=== PATIENT | female | born 1995 | race Caucasian/White ===

== ENCOUNTER 2017-06-01 20:43 | Day surgery (SDC) | payer OTHER ==
[~2017-06-01] VITALS: Ht 175.3 cm; Wt 70.3 kg
[2017-06-01 21:56] LABS: BASOPHILS % (AUTO) 0 % (0-10); EOSINOPHILS # (AUTO) 0.3 10^3/uL (0.0-0.3); EOSINOPHILS % (AUTO) 2 % (0-10); LYMPHOCYTES # (AUTO) 1.7 X 10^3 (1.0-4.0); LYMPHOCYTES % (AUTO) 13 % (12-44); MEAN CORPUSCULAR HEMOGLOBIN 30 PG (25-34); MEAN CORPUSCULAR HGB CONC 34 G/DL (32-36); MEAN CORPUSCULAR VOLUME 90 FL (80-99); MEAN PLATELET VOLUME 9.6 FL (7.4-10.4); MONOCYTES # (AUTO) 1.2 X 10^3 (0.0-1.0); MONOCYTES % (AUTO) 9 % (0-12); NEUTROPHILS # (AUTO) 10.3 X 10^3 (1.8-7.8); NEUTROPHILS % (AUTO) 76 % (42-75); PLATELET COUNT 289 10^3/uL (130-400); RED BLOOD COUNT 4.53 10^6/uL (4.35-5.85); RED CELL DISTRIBUTION WIDTH 13.8 % (10.0-14.5); WHITE BLOOD COUNT 13.6 10^3/uL (4.3-11.0)
[2017-06-01 21:57] LABS: BILIRUBIN,URINE NEGATIVE (NEGATIVE); KETONES,URINE NEGATIVE (NEGATIVE); LEUKOCYTE ESTERASE ,URINE NEGATIVE (NEGATIVE); NITRITE,URINE NEGATIVE (NEGATIVE); PH,URINE 7 (5-9); PROTEIN,URINE NEGATIVE (NEGATIVE); UROBILINOGEN,URINE NORMAL (NORMAL)
[2017-06-01] MEDS ORDERED: fentaNYL INJECTION 100 MCG/2 ML AMP IVP ONE ×2 (22:00→23:15)
[2017-06-01] MEDS ORDERED: KETOROLAC 30 MG/ML VIAL IVP ONE (22:00)
[2017-06-01] MEDS ORDERED: ONDANSETRON 4 MG/2 ML (SDV) Z0FRAN IVP ONE (22:00)
--- NOTE | 2017-06-01 22:13 | ED Abdominal Pain ---
General Chief Complaint: Abdominal/GI Problems Stated Complaint: STOMACH PAIN Source of Information: Patient Exam Limitations: No Limitations History of Present Illness Time Seen By Provider: 22:13 Initial Comments To ER with epigastric abdominal pain. This began about 4-5 hours ago. Her last food was at 2 p.m. She's never had this pain before. It's associated with nausea but no vomiting. Chills but no fever. No bowel changes. No dysuria. No possibility of . Timing/Duration: 4-6 Hours Severity/Quality: Moderate Location: Epigastric Radiation: No Radiation Activities at Onset: None Allergies and Home Medications Allergies Coded Allergies: No Known Drug Allergies (Unverified , 06/01/17) Review of Systems Constitutional: see HPI EENTM: No Symptoms Reported Respiratory: No Symptoms Reported Cardiovascular: No Symptoms Reported Gastrointestinal: See HPI, Abdominal Pain Genitourinary: No Symptoms Reported Musculoskeletal: no symptoms reported Skin: no symptoms reported Psychiatric/Neurological: No Symptoms Reported Past Bywxdey-Eifyuj-Gppubx Hx Patient Social History Recent Foreign Travel: No Contact w/Someone Who Travel: No Physical Exam Vital Signs Capillary Refill : General Appearance: WD/WN, no apparent distress HEENT: PERRL/EOMI, normal ENT inspection Neck: non-tender, full range of motion Respiratory: no respiratory distress, no accessory muscle use Cardiovascular: regular rate, rhythm, no murmur Gastrointestinal: normal bowel sounds, soft, tenderness (epigastric) Extremities: normal range of motion, non-tender Neurologic/Psychiatric: alert, normal mood/affect, oriented x 3 Skin: normal color, warm/dry Progress/Results/Core Measures Results/Orders Lab Results Laboratory Tests Test 06/01/17 21:49 06/01/17 21:50 Range/Units White Blood Count 13.6 H 4.3-11.0 10^3/uL Red Blood Count 4.53 4.35-5.85 10^6/uL Hemoglobin 13.7 11.5-16.0 G/DL Hematocrit 41 35-52 % Mean Corpuscular Volume 90 80-99 FL Mean Corpuscular Hemoglobin 30 25-34 PG Mean Corpuscular Hemoglobin Concent 34 32-36 G/DL Red Cell Distribution Width 13.8 10.0-14.5 % Platelet Count 289 130-400 10^3/uL Mean Platelet Volume 9.6 7.4-10.4 FL Neutrophils (%) (Auto) 76 H 42-75 % Lymphocytes (%) (Auto) 13 12-44 % Monocytes (%) (Auto) 9 0-12 % Eosinophils (%) (Auto) 2 0-10 % Basophils (%) (Auto) 0 0-10 % Neutrophils # (Auto) 10.3 H 1.8-7.8 X 10^3 Lymphocytes # (Auto) 1.7 1.0-4.0 X 10^3 Monocytes # (Auto) 1.2 H 0.0-1.0 X 10^3 Eosinophils # (Auto) 0.3 0.0-0.3 10^3/uL Basophils # (Auto) 0.0 0.0-0.1 10^3/uL My Orders Orders - PETE DANG APRN Cbc With Automated Diff (06/01/17 21:39) Comprehensive Metabolic Panel (06/01/17 21:39) Lipase (06/01/17 21:39) Ua Culture If Indicated (06/01/17 21:39) Urine Bedside (06/01/17 21:39) Drug Screen Stat (Urine) (06/01/17 21:42) Ketorolac Injection (Toradol Injection) (06/01/17 22:00) Fentanyl Injection (Sublimaze Injection (06/01/17 22:00) Ondansetron Injection (Zofran Injectio (06/01/17 22:00) Saline Lock/Iv-Start (06/01/17 21:50) Us Gallbladder [id number] (06/01/17 21:51) Hcg,Qualitative Urine (06/01/17 21:52) Ct Abdomen/Pelvis W (06/01/17 22:12) Medications Given in ED Current Medications Medications Dose Ordered Sig/Cj Route Start Time Stop Time Status Last Admin Dose Admin Fentanyl Citrate 50 mcg ONCE ONCE IVP 06/01/17 22:00 06/01/17 22:01 DC 06/01/17 22:00 50 MCG Ketorolac Tromethamine 30 mg ONCE ONCE IVP 06/01/17 22:00 06/01/17 22:01 DC 06/01/17 22:00 30 MG Ondansetron HCl 4 mg ONCE ONCE IVP 06/01/17 22:00 06/01/17 22:01 DC 06/01/17 22:00 4 MG Departure Departure-Patient Inst. Referrals: NO,LOCAL PHYSICIAN (PCP/Family) Primary Care Physician PETE DANG APRN Jun 01, 2017 22:13
[2017-06-01] MEDS ORDERED: NS 100 ML (IVPB) BAG IV ONE (22:15)
[2017-06-01] MEDS ORDERED: IOHEXOL 350 MG/ML 100 ML (OMNIPAQUE 350) VIAL IV ONE (22:15)
[2017-06-01 22:17] LABS: WBC,URINE RARE /HPF
[2017-06-01 22:26] LABS: ALANINE AMINOTRANSFERASE 16 U/L (0-55); ALBUMIN 4.4 GM/DL (3.2-4.5); ANION GAP 9 MMOL/L (5-14); ASPARTATE AMINO TRANSFERASE 16 U/L (5-34); BILIRUBIN,TOTAL 0.3 MG/DL (0.1-1.0); BLOOD UREA NITROGEN 13 MG/DL (7-18); BUN/CREATININE RATIO 14; CALCIUM 9.6 MG/DL (8.5-10.1); CARBON DIOXIDE 24 MMOL/L (21-32); CHLORIDE 107 MMOL/L (98-107); CREATININE SERUM 0.94 MG/DL (0.60-1.30); GFR ESTIMATED > 60; GLUCOSE 97 MG/DL (70-105); LIPASE 14 U/L (8-78); POTASSIUM 3.7 MMOL/L (3.6-5.0); SODIUM 140 MMOL/L (135-145); TOTAL PROTEIN 7.7 GM/DL (6.4-8.2)
[2017-06-02] MEDS ORDERED: fentaNYL INJECTION 100 MCG/2 ML AMP IVP PRN ×2 (01:00→16:30)
[2017-06-02] MEDS ORDERED: NS IV 1000 ML 1,000 ML IV SCH (01:00)
[2017-06-02] MEDS ORDERED: PIPERACILLIN/TAZOBACTAM 4.5 GM/NS100 ML IVPB IV ONE ×2 (01:00)
[2017-06-02] MEDS: NS IV 1000 ML 1,000 ML IV SCH ×3 (01:04→17:55)
[2017-06-02] MEDS: fentaNYL INJECTION 100 MCG/2 ML AMP IV PRN ×8 (01:12→17:53)
[2017-06-02] MEDS ORDERED: BUPR300T43 PO (01:32)
[2017-06-02 05:00] VITALS: BP 113/70
--- NOTE | 2017-06-02 06:41 | Diagnostic Imaging Report ---
Clinical indication: Patient with abdominal pain. Exam: Right upper quadrant ultrasound. Comparison: None. Findings: The pancreas has normal echogenicity, configuration and appearance. The liver has normal echogenicity with no liver mass seen. The liver is mildly enlarged measuring 17.4 cm but has a slender appearing inferior portion of the liver which may represent a Noah's lobe. The liver is otherwise unremarkable. The right kidney has normal echogenicity, cortical thickness and appearance with no stones or hydronephrosis. The right kidney measures 11.1 cm. The common bile duct measures 3.1 mm. Gallbladder is unremarkable with no stones, sludge, gallbladder wall thickening or pericholecystic fluid. There is no abdominal ascites. There is no sonographic [place] sign. Impression: Unremarkable right upper quadrant ultrasound. Dictated by: Dictated on workstation # [id number]
[2017-06-02 06:43] LABS: BASOPHILS % (AUTO) 0 % (0-10); EOSINOPHILS # (AUTO) 0.3 10^3/uL (0.0-0.3); EOSINOPHILS % (AUTO) 3 % (0-10); LYMPHOCYTES # (AUTO) 1.6 X 10^3 (1.0-4.0); LYMPHOCYTES % (AUTO) 16 % (12-44); MEAN CORPUSCULAR HEMOGLOBIN 30 PG (25-34); MEAN CORPUSCULAR HGB CONC 32 G/DL (32-36); MEAN CORPUSCULAR VOLUME 92 FL (80-99); MEAN PLATELET VOLUME 9.8 FL (7.4-10.4); MONOCYTES # (AUTO) 0.9 X 10^3 (0.0-1.0); MONOCYTES % (AUTO) 9 % (0-12); NEUTROPHILS # (AUTO) 7.3 X 10^3 (1.8-7.8); NEUTROPHILS % (AUTO) 73 % (42-75); PLATELET COUNT 211 10^3/uL (130-400); RED BLOOD COUNT 3.96 10^6/uL (4.35-5.85); RED CELL DISTRIBUTION WIDTH 13.7 % (10.0-14.5); WHITE BLOOD COUNT 10.1 10^3/uL (4.3-11.0)
--- NOTE | 2017-06-02 06:58 | Diagnostic Imaging Report ---
CLINICAL INDICATION: Patient with upper abdominal pain with nausea x5 hours. EXAM: Axial CT scan of the abdomen and pelvis performed with 110 cc of Omnipaque 300 IV contrast. Coronal and sagittal reformatted images are created. COMPARISON: None. FINDINGS: There is mild atelectasis in the left lung base. The appendix is enlarged measuring 9 to 10 mm in greatest width. It is best seen on the coronal sequence series 4, image 18 and series 2, image 58. There is no significant adjacent fat stranding. There is no intra-abdominal free air or abscess. Remainder of the abdomen is unremarkable. There is no history of abdominal free air or lymphadenopathy. The liver, spleen, pancreas, adrenal glands, gallbladder, and both kidneys are unremarkable. There is no stones or hydronephrosis. The remainder of the visualized stomach, small bowel, and colon are unremarkable. There is a roughly 2.2 cm cyst involving the right adnexal region. Uterus and adnexal regions otherwise show no significant abnormality. Extra-abdominal and extrapelvic soft tissue structures are unremarkable. IMPRESSION: 1: Unruptured acute appendicitis. There is no evidence of intra-abdominal free air or abscess. 2: The remainder of this exam is unremarkable. I agree with [employer] report. Dictated by: Dictated on workstation # [id number]
[2017-06-02] MEDS: ONDANSETRON 4 MG/2 ML (SDV) Z0FRAN IV PRN ×3 (07:01→18:17)
[2017-06-02] MEDS: PIPERACILLIN/TAZOBACTAM 4.5 GM/NS100 ML IVPB IV SCH ×4 (07:04→14:39)
[2017-06-02 08:00] VITALS: BP 101/63
[2017-06-02] MEDS ORDERED: NICOTINE 21 MG (NICODERM) PATCH TD SCH (08:00)
[2017-06-02] MEDS ORDERED: CATHETER FLUSH 10 ML SYR IV PRN (08:15)
--- NOTE | 2017-06-02 08:49 | Progress Note-Pre Operative ---
Pre-Operative Progress Note H&P Reviewed The H&P was reviewed, patient examined and no changes noted. Date Seen by Provider: Jun 02, 2017 Time Seen by Provider: 08:30 Date H&P Reviewed: Jun 02, 2017 Time H&P Reviewed: 08:30 Pre-Operative Diagnosis: acute appendicitis ASTER MULLIGAN MD Jun 02, 2017 8:49 am
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
[2017-06-02 12:00] VITALS: BP 116/64
[2017-06-02] MEDS ORDERED: BUP/EPI 0.5% 1:200,000 (MARCAINE) 10ML VIAL IJ ONE (13:55)
[2017-06-02] MEDS ORDERED: MIDAZOLAM 2 MG/2 ML (VERSED) VIAL ONE (14:17)
[2017-06-02] MEDS ORDERED: ROCURONIUM 50 MG/5 ML (ZEMURON) VIAL IV ONE (14:17)
[2017-06-02] MEDS ORDERED: proPOfol 200 MG/20 ML (DIPRIVAN) VIAL IV ONE (14:17)
[2017-06-02] MEDS ORDERED: SUCCINYLCHOLINE INJ 100 MG/5 ML SYR ONE (14:17)
[2017-06-02] MEDS ORDERED: fentaNYL INJECTION 100 MCG/2 ML AMP ONE ×2 (14:17→15:31)
[2017-06-02] MEDS ORDERED: LACTATED RINGERS 1,000 ML IV ONE ×2 (14:17→15:36)
[2017-06-02] MEDS ORDERED: LIDOCAINE PF 2% 5 ML (XYLOCAINE) VIAL ONE (14:17)
[2017-06-02] MEDS ORDERED: ONDANSETRON 4 MG/2 ML (SDV) Z0FRAN ONE (14:17)
[2017-06-02] MEDS: LACTATED RINGERS 1,000 ML IV PRN ×2 (14:25→15:30)
[2017-06-02] MEDS ORDERED: morphine INJ 10 MG/ML 1ML (SYR OR VIAL) ONE (15:12)
[2017-06-02] MEDS ORDERED: SEVOFLURANE (ULTANE) 15 ML INHAL SOLN ONE (15:36)
[2017-06-02] MEDS ORDERED: NEOSTIGMINE (BLOXIVERZ ) 1 MG/1ML 10 ML VIAL ONE (15:43)
--- NOTE | 2017-06-02 15:46 | Progress Note-Post Operative ---
Post-Operative Progess Note Surgeon (s)/Knife Changer (s) Surgeon ASTER MULLIGAN MD Knife Changer: deandre ann SALES NEGOTIATOR Pre-Operative Diagnosis acute appendicitis Post-Operative Diagnosis same Procedure & Operative Findings Date of Procedure 06/02/17 Procedure Performed/Findings laparoscopic appendectomy Anesthesia Type GET Estimated Blood Loss Estimated blood loss (mL): minimal Specimens/Packing Specimens Removed appendix ASTER MULLIGAN MD Jun 02, 2017 3:46 pm
[2017-06-02] MEDS ORDERED: HYDR-3816 PO (15:47)
--- NOTE | 2017-06-02 15:48 | Discharge Inst-Surgical ---
D/C Lap Instructions-ESE New, Converted, or Re-Newed RX: RX on Chart Follow Up Appt in 2 weeks Activity as tolerated No driving for 24 hours No driving while on pain medications Incentive Spirometry use every 2 hours while awake Regular Diet Symptoms to Report: Fever over 101 degree F, Nausea/Vomiting Infection Signs and Symptoms to report: Increased redness, Foul odor of wound, Increased drainage Bathing instructions: May shower Operative Area Clean/Dry; Keep incision clean/dry If any problems/questions: Contact your physician or go to Emergency Room ASTER MULLIGAN MD Jun 02, 2017 3:48 pm
[2017-06-02 16:00] VITALS: BP 129/82
[2017-06-02] MEDS: morphine INJ 10 MG/ML 1ML (SYR OR VIAL) IVP PRN ×3 (16:03→16:11)
[2017-06-02] MEDS: fentaNYL INJECTION 100 MCG/2 ML AMP IVP PRN ×2 (16:11→16:18)
[2017-06-02] MEDS ORDERED: HYDROmorphone (DILAUDID) 2 MG/ML VIAL ONE (16:24)
[2017-06-02] MEDS ORDERED: ONDANSETRON 4 MG/2 ML (SDV) Z0FRAN IVP PRN ×2 (16:30)
[2017-06-02] MEDS ORDERED: morphine INJ 10 MG/ML 1ML (SYR OR VIAL) IVP PRN (16:30)
[2017-06-02] MEDS ORDERED: HYDROmorphone (DILAUDID) 2 MG/ML VIAL IVP PRN (16:45)
[2017-06-02] MEDS ORDERED: HYDROcodone/APAP 7.5 MG/325 MG (LORTAB, LORCET PLUS) TABLET PO PRN (18:00)
[2017-06-02] MEDS ORDERED: ONDA4TAB8 PO (18:25)
[2017-06-02 19:59] VITALS: BP 129/82
--- NOTE | 2017-06-03 05:03 | OPERATIVE REPORT ---
DATE OF SERVICE: 06/02/2017 preop dx: acute appendicitis. postop dx: same. procedure: laparoscopic appendectomy. surgeon: manuel assist: marissa anesth: GET EBL: minimal disp: patient tolerated well. INDICATIONS: The patient s a 22-year-old female who presented to [facility] Emergency Department earlier this morning with pain in the right lower abdominal quadrant. She reports that she has not had this before. She reports the pain was sharp in nature and persisted and was associated with nausea; however, no vomiting. A CT scan was performed as well as laboratory work. She did have a slightly elevated white blood cell count and CT scan also did show a dilated appendix consistent with an acute appendicitis. DESCRIPTION OF PROCEDURE: The patient was brought to the operating room, laid supine on the table. After adequate IV pain and sedative medications and general endotracheal intubation, the abdomen was prepped and draped in standard surgical fashion. Then 0.5% Marcaine with epinephrine was used to anesthetize the overlying skin in the left upper abdominal quadrant. A small transverse skin incision made using a 15 blade. An 0 silk suture was applied to the medial aspect of the incision for retraction and a Veress needle inserted with a low opening pressure of 0 mmHg. The abdomen was insufflated to 15 mmHg pressure. The Veress needle removed and a 5 mm Xcel trocar placed followed by a 5 mm 45 degree angle laparoscope visualizing the peritoneal cavity. A 4-quadrant abdominal exploration was performed. The uterus and ovaries appeared normal with no ovarian cysts. There were small amounts of fluid within the pelvis which appeared physiologic. There was an inflamed appendix consistent with an acute appendicitis; however, no perforation identified. Under direct visualization, we then proceeded to place a supraumbilical 10 mm port after the skin and peritoneum were anesthetized using 0.5% Marcaine with epinephrine and a transverse skin incision made using a 15 blade. In a similar manner, a suprapubic 5 mm port was placed. The patient was then placed in Trendelenburg position as well as planed right side up, left side down. The appendix was then retracted towards the anterior abdominal wall. A window was then created between the mesoappendix and the base of the appendix using a [place] dissector. The appendix was then stapled and transected at its base using a BRISA 45 mm stapler with a 2.5 mm thickness load. The mesoappendix was then stapled and transected with the same stapler with a 2.0 mm thickness reload with visualization of good hemostasis. The appendix was removed through the 10 mm port site using an EndoCatch bag. The area was then copiously irrigated and suctioned out with visualization of good hemostasis. The 10 mm port site fascia and peritoneum were then closed under direct visualization using a Genaro-Camilo device and 0 Vicryl suture. The abdomen was desufflated and remaining ports removed. All skin incisions were closed using 4-0 Monocryl running subcuticular sutures. Wounds were then cleaned and covered with Dermabond. The patient tolerated the procedure well. We will start IV and oral pain medication as well as a clear liquid diet. Once she is tolerating clears and has good pain control with oral pain medications and is ambulating well, we will discharge her home. Job ID: [id number] DocumentID: [id number] Dictated Date: 06/02/2017 15:54:03 Linoleum Layer Helper Date: 06/03/2017 05:03:14 Dictated By: ASTER MULLIGAN MD MTDD
[2017-06-03] MEDS ORDERED: NICOTINE PATCH REMOVAL TP SCH (08:59)
== END 2017-06-02 20:03 | disposition home or self-care (01) ==
LOC: ER 20:46 → 4TH 23:30 → SDC 23:30 → UNDOADMOB 23:30 → 4TH 23:30 → UNDODISOB 06-02 20:03 → SDC 06-02 20:03
PROVIDERS: ATTEND Surgery
DX: K35.80 Unspecified acute appendicitis (principal); K21.9 Gastro-esophageal reflux disease without esophagitis; F17.210 Nicotine dependence, cigarettes, uncomplicated
CPT/HCPCS: 36415; 74177; 76705; 80053; 80306; 81000; 83690; 84703; 85025; 87081; 96374; 96375; 96376